=== PATIENT | male | born 1955 | race African-American/Black ===

== ENCOUNTER 2021-03-31 13:14 | Emergency (ER) | payer MEDICARE, MEDICAID ==
[~2021-03-31] VITALS: Ht 172.7 cm; Wt 100.0 kg
[2021-03-31 13:24] VITALS: BP 201/102
[2021-03-31] MEDS ORDERED: TOPUD MT (15:25)
== END 2021-03-31 15:57 | disposition home or self-care (01) ==
LOC: ER 13:14
DX: S09.8XXA Other specified injuries of head, initial encounter (principal); R03.0 Elevated blood-pressure reading, without diagnosis of hypertension; Y00.XXXA Assault by blunt object, initial encounter; Y93.89 Activity, other specified; Y92.89 Other specified places as the place of occurrence of the external cause
CPT/HCPCS: 93005; 99284